=== PATIENT | male | born 1970 | race Hispanic/Latino ===

== ENCOUNTER 2018-12-02 05:30 | Day surgery (SDC) | payer MEDICAID ==
[~2018-12-02] VITALS: Ht 162.6 cm; Wt 87.1 kg
[2018-12-02 06:27] VITALS: BP 162/97
[2018-12-02] MEDS ORDERED: SODIUM CHLORIDE 0.9% 1000ML 1,000 ML IV ONE (06:36)
[2018-12-02] MEDS ORDERED: ATOR20TA65 PO (06:42)
[2018-12-02] MEDS ORDERED: ISOS30TA6 PO (06:42)
[2018-12-02] MEDS ORDERED: LOSA50TA64 PO (06:42)
[2018-12-02] MEDS ORDERED: AMIO200T5 PO (06:42)
[2018-12-02] MEDS ORDERED: FURO20TA4 PO (06:42)
[2018-12-02] MEDS ORDERED: GABA-531 PO (06:42)
[2018-12-02] MEDS ORDERED: SERT50TA12 PO (06:42)
[2018-12-02] MEDS ORDERED: SITA100T12 PO (06:42)
[2018-12-02] MEDS ORDERED: ASPI-1197 PO (06:42)
[2018-12-02] MEDS ORDERED: METF-446 PO (06:42)
[2018-12-02] MEDS ORDERED: METO50TA18 PO (06:42)
[2018-12-02] MEDS ORDERED: FAMO20TA8 PO (06:42)
[2018-12-02] MEDS ORDERED: EMPA10TA PO (06:42)
[2018-12-02] MEDS ORDERED: PROPOFOL 10 MG/ML 20ML VIAL IV ONE (07:40)
[2018-12-02] MEDS ORDERED: LIDOCAINE HCL 1% 20 ML VIAL ONE (07:41)
[2018-12-02 08:12] VITALS: BP 120/83
[2018-12-02 08:18] VITALS: BP 115/81
[2018-12-02 08:24] VITALS: BP 118/80
== END 2018-12-02 08:45 | disposition home or self-care (01) ==
LOC: ENDO 05:30 → DAH 05:30 → ENDO 08:45
PROVIDERS: ATTEND Internal Medicine
DX: Z12.11 Encounter for screening for malignant neoplasm of colon (principal); K63.5 Polyp of colon; D12.7 Benign neoplasm of rectosigmoid junction; K29.50 Unspecified chronic gastritis without bleeding; E78.5 Hyperlipidemia, unspecified; I25.10 Atherosclerotic heart disease of native coronary artery without angina pectoris; F41.9 Anxiety disorder, unspecified; F32.9 Major depressive disorder, single episode, unspecified; Z95.1 Presence of aortocoronary bypass graft; I21.3 ST elevation (STEMI) myocardial infarction of unspecified site; Z68.32 Body mass index [BMI] 32.0-32.9, adult; Z79.899 Other long term (current) drug therapy; Z79.82 Long term (current) use of aspirin; Z79.84 Long term (current) use of oral hypoglycemic drugs; Z98.890 Other specified postprocedural states; I11.0 Hypertensive heart disease with heart failure; I50.9 Heart failure, unspecified; E11.9 Type 2 diabetes mellitus without complications; K22.8 Other specified diseases of esophagus; K31.89 Other diseases of stomach and duodenum; K21.9 Gastro-esophageal reflux disease without esophagitis; R07.9 Chest pain, unspecified
CPT/HCPCS: 43239; 45380; 45385; 82948 ×2; 88305; 88342; 93005; A4606; J2704; J7030